=== PATIENT | male | born 1955 | race Caucasian/White ===

== ENCOUNTER → 2018-02-03 11:08 | Outpatient (CLI) | payer MEDICAID ==
[2015-06-19 07:55] VITALS: BMI 34.9
[~2018-02-03 11:08] MED LIST: MULTIPLE VITAMI1 TA1 PO; PRILOSEC20 MG PO; ZANTAC150 MG PO
== END | disposition home or self-care (01) ==
LOC: D.US 11:08
DX: N18.3 Chronic kidney disease, stage 3 (moderate) (principal); Z68.37 Body mass index [BMI] 37.0-37.9, adult